=== PATIENT | female | born 1995 | race Caucasian/White ===

== ENCOUNTER 2018-07-07 12:40 | Emergency (ER) | payer SELFPAY ==
[~2018-07-07] VITALS: Ht 167.6 cm; Wt 118.2 kg
[2018-07-07 12:53] VITALS: BP 128/71
== END 2018-07-07 16:30 | disposition left against medical advice (07) ==
LOC: EMS 12:43
DX: R07.0 Pain in throat (principal); Z53.21 Procedure and treatment not carried out due to patient leaving prior to being seen by health care provider